=== PATIENT | female | born 1990 | race Caucasian/White ===

== ENCOUNTER 2017-11-06 08:08 | Outpatient (CLI) | payer OTHER | END 2017-11-06 08:09 | disposition home or self-care (01) | LOC: LAB 08:08 | PROVIDERS: ATTEND Nurse Practitioner Obstetrics & Gynecology | DX: R73.02 Impaired glucose tolerance (oral) (principal) | CPT/HCPCS: 36415; 82951 ==

== ENCOUNTER 2017-11-08 10:02 | Outpatient (CLI) | payer OTHER ==
[2017-11-08 10:28] VITALS: BP 124/89
== END 2017-11-08 10:45 | disposition home or self-care (01) ==
LOC: WFO 10:02 → FBP 10:04 → WFO 10:45
PROVIDERS: ATTEND Nurse Practitioner Obstetrics & Gynecology
DX: O24.419 Gestational diabetes mellitus in pregnancy, unspecified control (principal)
CPT/HCPCS: 59025

== ENCOUNTER 2017-11-10 08:00 | Outpatient (CLI) | payer OTHER | END 2017-11-10 08:01 | disposition home or self-care (01) | LOC: LAB.R 08:00 | PROVIDERS: ATTEND Registered Nurse | DX: Z34.83 Encounter for supervision of other normal pregnancy, third trimester (principal) | CPT/HCPCS: 87081 ==

== ENCOUNTER 2017-11-10 10:16 | Outpatient (CLI) | payer OTHER ==
[2017-11-10 10:40] LABS: MEAN CORPUSCULAR HGB CONC 34.5 g/dL (32.0-36.0); MEAN CORPUSCULAR VOLUME 81.2 fL (81.0-99.0); MEAN PLATELET VOLUME 7.4 fL (7.9-10.8); RED BLOOD COUNT 4.28 10^6/uL (4.20-5.40); RED CELL DISTRIBUTION WIDTH 14.2 % (12.0-15.0); WHITE BLOOD COUNT 9.7 x10^3/uL (4.8-10.8)
[2017-11-10 10:48] LABS: ALKALINE PHOSPHATASE 88 IU/L (42-121); ALT ALANINE AMINOTRANSFERASE < 10 IU/L (10-60); AST ASPARTATE AMINOTRANSFERASE 18 IU/L (10-42); BILIRUBIN,TOTAL 0.4 mg/dL (0.2-1.0); BUN - BLOOD UREA NITROGEN 7 mg/dL (6-20); CALCIUM 8.5 mg/dL (8.5-10.3); CARBON DIOXIDE - CO2 19 mmol/L (21-32); CHLORIDE 106 mmol/L (101-111); CREATININE 0.5 mg/dL (0.4-1.0); GFR - MDRD 146 (>89); GLUCOSE 106 mg/dL (70-100); SODIUM 136 mmol/L (135-145); TOTAL PROTEIN 6.1 g/dL (6.7-8.2)
[2017-11-10 12:29] LABS: CREATININE,URINE 57.1 mg/dL
[2017-11-10 12:30] LABS: TOTAL PROTEIN,URINE TIMED < 6 mg/dL
[2017-11-10 13:20] VITALS: BP 122/82
== END 2017-11-10 13:05 | disposition home or self-care (01) ==
LOC: WFO 10:16 → FBP 10:18 → WFO 13:05
PROVIDERS: ATTEND Registered Nurse
DX: O16.3 Unspecified maternal hypertension, third trimester (principal); Z3A.36 36 weeks gestation of pregnancy
CPT/HCPCS: 36415; 80053; 82570; 84156; 99213

== ENCOUNTER 2017-11-10 12:39 | Outpatient (CLI) | payer OTHER ==
--- NOTE | 2017-11-11 12:28 | Ultrasound Report ---
OB FOLLOWUP: 11/10/2017 CLINICAL INDICATION: Gestational diabetes. Check growth. TECHNIQUE: Real-time scanning was performed with sales service representative static images obtained. LAST MENSTRUAL PERIOD: 03/03/2017 Clinical Age: 36 weeks 0 days US Age: 36 weeks 6 days EFW Hadlock: 2861 grams EFW% Hadlock: 50% Heart Rate: 139 bpm EDC: 12/08/2017 US EDC: 12/02/2017 BPD Hadlock: 36 weeks 4 days; Mean mm 90 HC Hadlock: 38 weeks 1 day; Mean mm 333 AC Hadlock: 34 weeks 4 days; Mean mm 305 FL Hadlock: 38 weeks 2 days; Mean mm 74 Presentation: cephalic Placental Location: anterior, maternal left Cervical Length: --- Amniotic Fluid: 15.18 cm FINDINGS: There is a single viable intrauterine gestation, in cephalic presentation. heart rate is 139 BPM. The placenta is anterior to the left , without evidence of previa. Amniotic fluid volume is normal with an MAO of 15.2. By size, the fetus measures 36 weeks 6 days (36 weeks 0 days by dating on the order). Estimated weight by Hadlock method is 2861 grams. No free fluid or adnexal lesion is appreciated. IMPRESSION: SINGLE VIABLE INTRAUTERINE GESTATION, MEASURING 36 WEEKS 6 DAYS. NORMAL MAO. TD: 11/10/2017 16:59 MTDD
== END 2017-11-10 12:40 | disposition home or self-care (01) ==
LOC: DI 12:39
PROVIDERS: ATTEND Nurse Practitioner Obstetrics & Gynecology
DX: O24.410 Gestational diabetes mellitus in pregnancy, diet controlled (principal); Z34.83 Encounter for supervision of other normal pregnancy, third trimester
CPT/HCPCS: 76816; 87081

== ENCOUNTER 2017-11-18 10:32 | Outpatient (CLI) | payer OTHER ==
[2017-11-18 10:49] VITALS: BP 126/89
== END 2017-11-18 11:07 | disposition home or self-care (01) ==
LOC: WFO 10:32 → FBP 10:33 → WFO 11:07
PROVIDERS: ATTEND Nurse Practitioner Obstetrics & Gynecology
DX: O13.3 Gestational [pregnancy-induced] hypertension without significant proteinuria, third trimester (principal); Z3A.37 37 weeks gestation of pregnancy
CPT/HCPCS: 36415; 59025; 80053; 82570; 84156; 84550

== ENCOUNTER 2017-11-18 11:11 | Outpatient (CLI) | payer OTHER ==
[2017-11-18 11:41] LABS: HGB - HEMOGLOBIN 12.2 g/dL (12.0-16.0); MEAN CORPUSCULAR HEMOGLOBIN 27.6 pg (27.0-31.0); MEAN CORPUSCULAR VOLUME 81.1 fL (81.0-99.0); MEAN PLATELET VOLUME 7.5 fL (7.9-10.8); RED BLOOD COUNT 4.41 10^6/uL (4.20-5.40); RED CELL DISTRIBUTION WIDTH 14.1 % (12.0-15.0); WHITE BLOOD COUNT 9.4 x10^3/uL (4.8-10.8)
[2017-11-18 11:47] LABS: CREATININE,URINE 142.1 mg/dL; PROTEIN/CREATININE RATIO,URINE 0.1 (<=0.2)
[2017-11-18 11:49] LABS: ALBUMIN 3.1 g/dL (3.2-5.5); ALKALINE PHOSPHATASE 97 IU/L (42-121); ALT ALANINE AMINOTRANSFERASE < 10 IU/L (10-60); AST ASPARTATE AMINOTRANSFERASE 15 IU/L (10-42); BILIRUBIN,TOTAL 0.5 mg/dL (0.2-1.0); BUN - BLOOD UREA NITROGEN 7 mg/dL (6-20); CALCIUM 8.6 mg/dL (8.5-10.3); CARBON DIOXIDE - CO2 22 mmol/L (21-32); CHLORIDE 108 mmol/L (101-111); CREATININE 0.5 mg/dL (0.4-1.0); GFR - MDRD 146 (>89); GLUCOSE 72 mg/dL (70-100); SODIUM 136 mmol/L (135-145); TOTAL PROTEIN 6.2 g/dL (6.7-8.2); URIC ACID 7.2 mg/dL (2.6-7.2)
== END 2017-11-18 11:12 | disposition home or self-care (01) ==
LOC: LAB 11:11
PROVIDERS: ATTEND Nurse Practitioner Obstetrics & Gynecology
DX: O13.3 Gestational [pregnancy-induced] hypertension without significant proteinuria, third trimester (principal)
CPT/HCPCS: 36415; 80053; 82570; 84156; 84550

== ENCOUNTER 2017-11-21 11:52 | Outpatient (CLI) | payer OTHER ==
[2017-11-21 12:37] LABS: MEAN CORPUSCULAR HEMOGLOBIN 27.5 pg (27.0-31.0); MEAN PLATELET VOLUME 7.8 fL (7.9-10.8); RED BLOOD COUNT 4.36 10^6/uL (4.20-5.40); RED CELL DISTRIBUTION WIDTH 14.4 % (12.0-15.0); WHITE BLOOD COUNT 9.8 x10^3/uL (4.8-10.8)
[2017-11-21 12:38] VITALS: BP 130/88
[2017-11-21 12:47] LABS: ALBUMIN/GLOBULIN RATIO 0.9 (1.0-2.2); ALKALINE PHOSPHATASE 105 IU/L (42-121); ALT ALANINE AMINOTRANSFERASE < 10 IU/L (10-60); AST ASPARTATE AMINOTRANSFERASE 16 IU/L (10-42); BILIRUBIN,TOTAL 0.5 mg/dL (0.2-1.0); BUN - BLOOD UREA NITROGEN 8 mg/dL (6-20); CALCIUM 8.7 mg/dL (8.5-10.3); CARBON DIOXIDE - CO2 20 mmol/L (21-32); CHLORIDE 103 mmol/L (101-111); CREATININE 0.6 mg/dL (0.4-1.0); GFR - MDRD 118 (>89); GLUCOSE 86 mg/dL (70-100); SODIUM 134 mmol/L (135-145); TOTAL PROTEIN 6.3 g/dL (6.7-8.2)
[2017-11-21 14:20] LABS: CREATININE,URINE 43.6 mg/dL
[2017-11-21 14:22] LABS: TOTAL PROTEIN,URINE TIMED < 6 mg/dL
--- NOTE | 2017-11-21 14:53 | Ultrasound Report ---
DATE OF SERVICE: 11/21/2017 BIOPHYSICAL PROFILE: 11/21/2017 CLINICAL INDICATION: Gestational hypertension. FINDINGS: The fetus scores 2 points for breathing motion, 2 points for movements, 2 points for tone, and 2 points for amniotic fluid volume, yielding a total score of 8/8. Amniotic fluid index is 11.6. heart rate is 137 BPM. The placenta is left-sided, without evidence of previa. IMPRESSION: 8/8 BIOPHYSICAL PROFILE. TD: 11/21/2017 14:52 [facility]
== END 2017-11-21 13:45 | disposition home or self-care (01) ==
LOC: WFO 11:52 → FBP 11:54 → WFO 13:45
PROVIDERS: ATTEND Registered Nurse
DX: O10.913 Unspecified pre-existing hypertension complicating pregnancy, third trimester (principal); Z3A.37 37 weeks gestation of pregnancy
CPT/HCPCS: 36415; 59025; 76818; 80053; 82570; 84156

== ENCOUNTER 2017-11-22 05:40 | Inpatient (IN) | payer OTHER ==
[2017-11-22] MEDS ORDERED: LACTATED RINGERS 1,000 ML IV ONE ×3 (06:16→13:10)
[2017-11-22] MEDS ORDERED: SODIUM CHLORIDE FLUSH 0.9% 10 ML SYRINGE ONE (06:20)
[2017-11-22] MEDS: LACTATED RINGERS 1,000 ML IV SCH ×2 (08:00→09:57)
[2017-11-22 08:21] LABS: BASOPHILS % (AUTO) 0.3 %; EOSINOPHILS # (AUTO) 0.1 10^3/uL (0.0-0.7); EOSINOPHILS % (AUTO) 0.5 %; HGB - HEMOGLOBIN 11.9 g/dL (12.0-16.0); LYMPHOCYTES # (AUTO) 2.4 10^3/uL (1.5-3.5); LYMPHOCYTES % (AUTO) 22.8 %; MEAN CORPUSCULAR HEMOGLOBIN 27.6 pg (27.0-31.0); MEAN CORPUSCULAR HGB CONC 33.2 g/dL (32.0-36.0); MEAN PLATELET VOLUME 8.4 fL (7.9-10.8); MONOCYTES # (AUTO) 0.8 10^3/uL (0.0-1.0); MONOCYTES % (AUTO) 7.6 %; NEUTROPHILS # (AUTO) 7.3 10^3/uL (1.5-6.6); NEUTROPHILS % (AUTO) 68.8 %; PLT - PLATELET COUNT 221 10^3/uL (130-450); RED BLOOD COUNT 4.33 10^6/uL (4.20-5.40); RED CELL DISTRIBUTION WIDTH 14.5 % (12.0-15.0); WHITE BLOOD COUNT 10.7 x10^3/uL (4.8-10.8)
[2017-11-22] MEDS ORDERED: fentaNYL 250 MCG/5 ML VIAL IVP PRN (08:30)
--- NOTE | 2017-11-22 08:35 | HISTORY & PHYSICAL EXAMINATION ---
Admit History - Instructions [place]/Slash: -Left hand click circles element as positive or present. -Right hand click slashes element as negative or not present. - Visit Reason Visit Reason: Contractions (Strong contractions began @ 0300; she took a bath & ate a light snack, hydrated well; contractions became progressively worse & she presented to [facility] @ 0600; was 3cm/90%/-1 @ that point, no LOF/VB) - : 2 Parity: 1 Premature: 0 Ectopic: 0 : 0 Care: positive: [facility] (beginning @ 34 weeks' gestation for 4 visits), [facility] (initiated care @ 10 weeks for a total of 6 visits there) Risk/History: positive: Gestational diabetes (GDMA1, identified @ 35 weeks' gestation), induced HTN (no s/sx PET; onset ~36 weeks' gestation) Complications This : positive: Gestational diabetes (GDMA1), induced HTN (no s/sx PET; on labetalol 200mg po BID w/o s/sx PET; no severe-range pressures) Smoking Status: Never smoker - Mother's Labs Mother's Blood Type: positive: O Mother's RH: positive: Positive GBS: positive: Group B Step Negative Rubella Status: positive: Immune - Other Maternal History Other Maternal History: 1-hr gtt 150mg/dL; drawn @ [facility] w/o f/u initiated; 3-hr gtt performed @ 35 weeks ' gestation: 99/201/167/90; CBGs @ home all WNL, diet-controlled; GHTN identified @ 36 weeks' gestation: labetalol initiated, titrated to manage BPs to 200mg po BID, PLT 276K, LFTs WNL, no hemolysis, no proteinuria, no neuro s/sx Meds/Allgy - Home Medications Home Medications: Ambulatory Orders Medication Instructions Recorded Confirmed Labetalol [Trandate] 200 mg PO BID 11/22/17 11/22/17 Pantoprazole [Protonix] 40 mg PO DAILY 11/22/17 11/22/17 Pnv No.122/Iron/Folic Acid 1 tab PO DAILY 11/22/17 11/22/17 [ Multi Tablet] - Allergies Allergies/Adverse Reactions: Allergies Allergy/AdvReac Type Severity Reaction Status Date / Time band aids AdvReac Rash Uncoded 11/08/17 10:15 Physical - Abdominal Exam Vital Signs: Temp Pulse Resp BP Pulse Ox 36.8 C 83 18 120/61 100 11/22/17 06:05 11/22/17 06:05 11/22/17 06:05 11/22/17 06:05 11/22/17 06:05 Contraction Frequency (min/apart): 5-7 Contraction Intensity: positive: Moderate to strong Uterine Resting Tone: positive: Soft - Monitoring Heart Rate Baseline: 140 Strip Review: positive: Category I (+accels, no decels, mod ivis) - Presentation Presentation: positive: Vertex - Vaginal Exam Membranes: positive: Membranes intact Dilation (in cm): 5 Effacement (%): 90 Station: positive: -1 Cervical Position: positive: Midposition (soft) - Speculum Exam Speculum Exam Performed: positive: No Findings: negative: Gross leak - Other Notes Labor Progress Note/Additional Text: Naomi Freed is a 27 y/o @ 37w5d by LMP consistent w/ 10 week ultrasound who began receiving care w/ [facility] @ 10 weeks' gestation & was seen for a total of 6 visits in their setting; she transferred care to [facility] @ 34 weeks' gestation & was seen for a total of 4 visits in this setting. Her care was complicated by GDM with late identification, as 3 hr gtt was not performed until she was seen by CNM @ [facility]. Her CBGs have been WNL & her GDM has been consistently diet-controlled. She developed elevated BPs @ 36 weeks' gestation & began labetalol for management of BPs, which have been consistently non-severe range on 200mg po labetalol daily. Her laboratory evaluation for PET has been negative & she has had no proteinuria. She does not have s/sx PET & has had reactive & reassuring surveillance. She screened negative for GBS @ 36 weeks' gestation. Naomi presented w/ SOOC @ 0300 w/ progressive frequency/intensity ~0600. She was 3/90/-1 @ 0600 & was found to have made cervical change to 5/90/-1 @ 0800, at which time she requested analgesia & anesthesia. She denies LOF & has had some bloody show but no zara vaginal bleeding. She reports good FM. She did not check her CBG this am & did not take her labetalol. She is normotensive @ present & her EFM has been consistently category I. She denies JUNG/vision changes/RUQ/epigastric/shoulder pain. She is exhausted. She is accompanied by her , Angelo, who is involved & supportive. PMHx: GERD PSHx: unremarkable PgynHx: hx recurrent vaginitis; no STI hx PobHx: Hx x1 2016, elective IOL, no complications SocHx: Unemployed, to Angelo, denies DV; no tobacco/ETOH/drugs Meds: Labetalol 200mg po BID; protonix 40mg po daily; PNV Labs: O+, antibody neg, PLT 276K, h/h: 12.0/34.8; P:C: <0.1; gtt: 150mg/dL; 3- hr gtt: 99/201/167/90; GBS neg; HIV/RPR/hepC/hep B/gc/ct all neg; Rubella Imm Allergies: codeine (rash); adhesive tape (rash) ROS: GEN: no fever/chills HEENT: no JUNG/vision changes CARDIAC: no CP/palpitations RESP: no SOB/dyspnea/cough GI: No N/V/D; abd pain w/ contractions, no RUQ/epigastric pain : No dysuria, +bloody vaginal d/c, no lesion OB: +FM, +uterine contractions, described as 8/10 pain, no LOF, +bloody show MS: +lumbar pain, FROM SKIN: No pruritus, no lesion NEURO: No numbness/tingling/weakness PSYCH: Anxious, no depression PE: GEN: AAOx3, uncomfortable gravid female HEENT: grossly normocephalic, atraumatic CARDIAC: [id number], no murmur, no pedal edema RESP: lungs b/t CTA t/o GI: Abd gravid, tender w/ contractions, palpable moderate contractions, palpable movement; lie longitudinal, presentation cephalic, EFW 7-7.5# : No lesions, +bloody mucoid vaginal d/c OB: EFM: BL 140bpm, +accels, no decels, mod variability; TOCO: UCs q5-7 min x60- 80 seconds, palpably moderate; SVE; 5/90/-1 IBOW, midposition, soft; position difficult to assess secondary to maternal discomfort w/ SVE MS: FROM t/o, no edema, no erythema SKIN: C/D/I, warm, well-perfused, no lesion NEURO: No focal deficit, b/l LE DTRs +2, no clonus PSYCH: Anxious, no depression ASSESSMENT: 27 y/o @ 37w5d by 1st trimester US in active, spontaneous labor, progressive spontaneous cervical change GBS negative, IBOW GHTN w/o s/sx PET, normotensive @ present GDMA1 FHTs cat I Inadequate pain control w/ desire for anesthesia @ this time Plan for Labor - Plan For Labor Plan for Labor: 1. Admit to [facility], inpatient 2. Fentanyl 100mcg IVP x1 now, call anesthesia to initiate epidural placement 3. CBC/CMP/P:C/blood bank hold 4. CEFM 5. CBGs q 2 hrs, intervention as clinically indicated 6. labetalol 200mg po & additional antihypertensive therapy IVP PRN HTN 7. close monitoring of BP & intervention as clinically indicated 8. Reassess cervical status x4 hours, earlier PRN, AROM if no cervical change 9. Anticipate 10. Reviewed plan of care w/ pt, partner & RN @ bedside; all in agreement, without concerns; Dr. Mikey MD, back-up WASHERY ENGINEER notified re: clinical situation & concurs w/ plan of care
[2017-11-22] MEDS ORDERED: fentaNYL 100 MCG/2 ML VIAL IVP PRN (08:42)
[2017-11-22] MEDS ORDERED: fent/BUPIV 2 MCG/0.125% 250 ML EP ONE (08:45)
[2017-11-22 09:02] LABS: ALBUMIN 3.2 g/dL (3.2-5.5); ALBUMIN/GLOBULIN RATIO 0.9 (1.0-2.2); BILIRUBIN,TOTAL 0.5 mg/dL (0.2-1.0); CALCIUM 8.8 mg/dL (8.5-10.3); CREATININE 0.6 mg/dL (0.4-1.0); TOTAL PROTEIN 6.7 g/dL (6.7-8.2)
[2017-11-22] MEDS ORDERED: LABETALOL 20 MG/4 ML SYRINGE IVP ONE (09:07)
[2017-11-22] MEDS ORDERED: BUPIVACAINE 0.25% PF 10 ML VIAL SUBQ ONE (09:51)
[2017-11-22] MEDS ORDERED: PANTOPRAZOLE 40 MG VIAL IVP SCH (10:00)
[2017-11-22] MEDS ORDERED: NALOXONE 0.4 MG/ML VIAL IVP PRN (10:02)
[2017-11-22] MEDS ORDERED: diphenhydrAMINE INJ 50 MG/ML VIAL IVP PRN (10:02)
[2017-11-22] MEDS ORDERED: NALBUPHINE 20 MG/ML AMP IVP PRN (10:02)
[2017-11-22] MEDS ORDERED: METOCLOPRAMIDE 10 MG/2 ML VIAL IVP PRN (10:02)
[2017-11-22] MEDS ORDERED: LACTATED RINGERS 500 ML IV ONE (10:02)
[2017-11-22] MEDS ORDERED: ONDANSETRON 4 MG/2 ML VIAL IVP PRN (10:02)
[2017-11-22] MEDS ORDERED: ePHEDrine 50 MG/ML VIAL IVP PRN (10:02)
--- NOTE | 2017-11-22 10:12 | PROVIDER PROGRESS NOTE ---
Labor Progress Note - Uterine Monitoring Uterine Monitoring Mode: positive: External toco Contraction Frequency (min/apart): q 5 min x 100 seconds Contraction Intensity: positive: Strong Uterine Resting Tone: positive: Soft - Monitoring Monitor Mode: positive: External ultrasound Heart Rate Baseline: 130 Heart Rate Variability: positive: Moderate (6-25 bmp) Accelerations: positive: Present, 15x15 Decelerations: positive: Early (to luli in 90s w/ spontaneous return to baseline by contractions' end) Strip Review: positive: Category I - Labor Progress Note Labor Progress Note/Additional Text: S: Naomi is now comfortable w/ her epidural in place. Feels she will be able to rest. Angelo is present @ the bedside & is supportive.0 O: AAOx3, NAD [place] gravid female VS: HR 76, BP 126/66, RR 18 EFM BL 130bpm, + accels, +early decels to luli in 90s w/ spontaneous return to baseline by contractions' end; mod variability TOCO: UCs q 5 min x100 seconds, palpably strong SVE deferred secondary to no indication & recent SROM for CAF CBG 99mg/dL A: 27 y/o @ 37w5d by first trimester US in active, spontaneous labor GDMA1 w/ CBG WNL GHTN w/o s/sx PET, normotensive @ present GBS negative, SROM for CAF Adequate pain control w/ epidural anesthesia P: 1. Continue q 2 hr CBGs in active labor 2. Continue careful monitoring of BP; initiate antihypertensive therapy as clinically indicated--presently stable on oral labetalol 3. Reassess cervical status x2 hours, earlier PRN 4. Encouraged maternal rest 5. Anticipate 6. Reviewed plan of care w/ pt, partner & RN @ bedside; all in agreement, without concerns.
[2017-11-22] MEDS: LABETALOL 100 MG TABLET PO SCH ×2 (10:13→20:01)
[2017-11-22] MEDS ORDERED: OXYTOCIN/SODIUM CHLORIDE 250 ML IV ONE (10:16)
[2017-11-22] MEDS: SODIUM CHLORIDE FLUSH 0.9% 10 ML SYRINGE IVP PRN ×2 (10:26→10:27)
--- NOTE | 2017-11-22 11:39 | PROVIDER PROGRESS NOTE ---
Labor Progress Note - Uterine Monitoring Uterine Monitoring Mode: positive: IUPC Contraction Frequency (min/apart): 3 min : MVU presently >180 Contraction Intensity: positive: Moderate to strong Uterine Resting Tone: positive: Soft Other Uterine Monitoring: baseline 0mmHg, peak 50mmHg - Monitoring Monitor Mode: positive: Spiral electrode Heart Rate Baseline: 130 Heart Rate Variability: positive: Moderate (6-25 bmp) Accelerations: positive: Absent Decelerations: positive: Variable (with strong contractions to luli in 80s w/ spontaneous return to baseline <60seconds), Recurrent (>50% x20 min) Strip Review: positive: Category II - Vaginal Exam Dilation (in cm): 6 Effacement (%): 90 Station: -1 Cervical Position: Midposition - Labor Progress Note Labor Progress Note/Additional Text: S: Naomi is comfortable w/ her epidural. She has been unable to sleep, but she has been resting. She is hopeful that her labor will progress spontaneously & that she will deliver shortly. Angelo is present @ the bedside & is supportive. O: AAOx3, NAD [place] female VS HR 68 BP 117/75 EFM BL 130bpm, no accels, mod ivis, recurrent variable decelerations to luli in 80s w/ spontaneous return to baseline <60 seconds; FSE applied w/o difficulty secondary to difficulty maintaining consistent external CEFM IUPC placed to ensure adequacy of contractions & pattern of FHR deceleration in relation to contraction activity; MSAF noted; BL 0mmHg, peak 50mmHg, contractions q2-3 minutes, MVU presently >180 SVE: /-1, position ROT A: 27 y/o @ 37w5d by 1st trimester US in spontaneous, active labor MSAF, SROM x1.5 hours FHTs Cat II for recurrent variable decelerations GBS negative GHTN w/o s/sx PET, normotensive @ prsent GDMA1, CBGs WNL Adequate contraction pattern by MVU Adequate pain control w/ epidural anesthesia Slow cervical change P: 1. Reviewed clinical scenario w/ pt, including implications of MSAF, recurrent decelerations, slow cervical change & no progressive descent 2. Ongoing careful monitoring of BP 3. Ongoing CBG evaluation 4. Dr. Mikey MD, back-up COOKING SHOW HOST, notifed of clinical scenario, available for additional intervention as warranted 5. Dr. Poly MD, brand manager, notified of clinical scenario, plans to be available @ hospital for delivery 6. Reassess cervical status x1 hour, earlier PRN 7. Intrauterine resuscitative measures 8. Reviewed plan of care w/ pt, partner & RN @ bedside; all in agreement, cautiously optimistic for cervical change &
[2017-11-22] MEDS ORDERED: TERBUTALINE 1 MG/ML VIAL SUBQ ONE (12:17)
--- NOTE | 2017-11-22 12:20 | PROVIDER PROGRESS NOTE ---
Labor Progress Note - Uterine Monitoring Uterine Monitoring Mode: positive: IUPC Contraction Frequency (min/apart): 2-3 : baseline 0mmHg, peak 65mmHg, MVU >200 @ present Contraction Intensity: positive: Moderate to strong Uterine Resting Tone: positive: Soft - Monitoring Monitor Mode: positive: Spiral electrode Heart Rate Baseline: 120 Heart Rate Variability: positive: Moderate (6-25 bmp) Accelerations: positive: Absent Decelerations: positive: Variable (recurrent variable contractions to luli in 70s w/ spontaneous return to baseline over 90-110 seconds, becoming progressively prolonged & progressively steep.), Recurrent (>50% x20 min) Strip Review: positive: Category II - Vaginal Exam Dilation (in cm): 6 Effacement (%): 90 Station: -1 Cervical Position: Midposition ( position LOP) - Labor Progress Note Labor Progress Note/Additional Text: S: Naomi is comfortable w/ her epidural. She is nervous about well- being. She does not desire a c/s delivery but also is fully aware of her clinical circumstance & the implications for her fetus. O: AAOx3, tearful gravid female EFM:BL 120bpm, no accels, recurrent variable decelerations w/ luli in 70s w/ each uterine contraction, spontaneous recovery over a period of 90-110 seconds, no response to intrauterine resuscitative measures IUPC: Uterine contractions q2-3 minutes x60-80 seconds, BL 0mmHg, peak 65mmHg, MVU >200 SVE: 6/90/-1, MSAF continues to leak, position ROP A: 27 y/o @ 37w5d in spontaneous, active labor, no progressive cervical change FHTs cat II, recurrent variable decelerations of increasing depth & duration MSAF GHTN w/o s/sx PET, normotensive @ present GDMA1 w/ CBGS WNL during active labor Adequate pain control w/ epidural anesthesia Adequate contraction pattern, no cervical change P: 1. Reviewed clinical scenario w/ pt; recommend proceed to c/s delivery 2. terbutaline 0.25mg SQ now 3. anesthesia/ob/OR team notified 4. pt & partner in agreement w/ decision to proceed to d/c, Dr. Jensen to bedside to consent pt for primary LTCS for NRFHTs.
[2017-11-22] MEDS ORDERED: CITRIC ACID/SODIUM CITRATE 15 ML UDC PO ONE (12:28)
[2017-11-22] MEDS ORDERED: BUPIVACAINE 0.25%-EPI 1:200000 PF 30 ML VIAL SUBQ ONE ×2 (12:55→13:00)
[2017-11-22] MEDS ORDERED: SODIUM CHLORIDE FLUSH 0.9% 10 ML SYRINGE IVP PRN (13:47)
[2017-11-22] MEDS ORDERED: HYDROCORTISONE/PRAMOXINE 10 GM PR PRN (13:47)
[2017-11-22] MEDS ORDERED: diphenhydrAMINE 25 MG CAPSULE PO PRN (13:47)
[2017-11-22] MEDS ORDERED: oxyCOD/ACETAMIN 5 MG/325 MG TABLET PO PRN (13:47)
[2017-11-22] MEDS ORDERED: WITCH HAZEL/GLYCERIN 1 EACH MED..PAD TOP PRN (13:47)
--- NOTE | 2017-11-22 13:55 | OPERATIVE REPORT ---
Operative Report - General Admit Date: 11/22/17 Planned Procedure: Emergent section Pre-Op Diagnosis: Term labor; category 3 heart tracing; gestational diabetes; Procedure Performed: Primary lower segment transverse section yielding a living male Post Op Diagnosis: Occult cord prolapse; Nuchal cord 2 - Procedure Note Primary Surgeon: Angel Luis Jensen MD Secondary Surgeon: Leonidas Joe certified nurse stave planer tender Anesthesia Technique: Epidural, General mask, Local Pathology: Placenta 10 sent to pathology IV Fluids (mL): 1,400 Estimated Blood Loss (mL): 250 Urine Output (mL): 200 Drain/Tube Type: Other (Saini to gravity) Complications: None - Other Other Information/Narrative: Living female infant weighing 2918 g Apgars 4/8/9; Cord pH 7.14, base excess -6 Infant responded well to resuscitation reference Dr. Mendoza's notes
[2017-11-22] MEDS ORDERED: SODIUM CHLORIDE FLUSH 0.9% 10 ML SYRINGE IVP SCH (14:00)
[2017-11-22] MEDS ORDERED: LACTATED RINGERS 1,000 ML IV SCH (14:00)
--- NOTE | 2017-11-22 14:10 | XRAY Report ---
EXAM: ABDOMEN RADIOGRAPHY EXAM DATE: 11/22/2017 01:47 PM. CLINICAL HISTORY: Stat section. Assess for materials count. COMPARISON: None. TECHNIQUE: 1 view. FINDINGS: Bowel Gas Pattern: No bowel obstruction. Increased density projected over the central mid and lower a bdomen and pelvis. Other: Linear radiopaque density projects are lower thoracic and portions of the upper lumbar spine. Linear radiopaque density projects over the mid lower pelvis. No acute osseous abnormalities. Widening of the pubis symphysis. IMPRESSION: 1. Linear radiopaque density projected over the lower thoracic and mid and upper lumbar spine possibl y overlying the patient or represent an epidural lead/catheter. Correlation recommended. 2. Linear radiopaque density projected over the mid lower pelvis possibly overlying catheter, Saini c atheter and less typical for drainage catheter. Correlation recommended. 3. No other unexpected radiopaque foreign bodies are identified. [facility] Referring Provider Line: [phone] SITE ID: [id number]
[2017-11-22 14:22] LABS: CORD ARTERIAL BLOOD HCO3 23.4; CORD ARTERIAL BLOOD PCO2 69.1
[2017-11-22] MEDS ORDERED: fentaNYL 100 MCG/2 ML VIAL IVP ONE (14:24)
[2017-11-22] MEDS ORDERED: KETOROLAC 30 MG/ML VIAL IVP ONE (14:24)
[2017-11-22] MEDS ORDERED: ceFAZolin 1 GM VIAL IV ONE (14:24)
[2017-11-22] MEDS ORDERED: BUPIVACAINE 0.5% PF 30 ML VIAL SUBQ ONE (14:24)
[2017-11-22] MEDS ORDERED: PROPOFOL 200 MG/20 ML VIAL IVP ONE (14:24)
[2017-11-22] MEDS ORDERED: OXYTOCIN 10 UNIT/ML VIAL IV ONE (14:24)
[2017-11-22] MEDS: oxyCOD/ACETAMIN 5 MG/325 MG TABLET PO PRN ×3 (16:04→23:53)
[2017-11-22 16:58] LABS: CREATININE,URINE 29.5 mg/dL
[2017-11-22 16:59] LABS: TOTAL PROTEIN,URINE TIMED < 6 mg/dL
[2017-11-22] MEDS ORDERED: ALPRAZolam 0.25 MG TABLET PO PRN (18:46)
[2017-11-22] MEDS: KETOROLAC 30 MG/ML VIAL IV SCH (19:38)
[2017-11-22] MEDS: SIMETHICONE CHEW 80 MG TABLET PO SCH (20:10)
[2017-11-22] MEDS: DOCUSATE SODIUM 100 MG CAPSULE PO SCH (20:10)
[2017-11-22] MEDS ORDERED: LABETALOL 100 MG TABLET PO SCH (21:00)
[2017-11-22] MEDS: fentaNYL 100 MCG/2 ML VIAL IVP PRN (21:36)
[2017-11-22] MEDS: ACETAMINOPHEN 500 MG TABLET PO SCH (22:18)
[2017-11-23] MEDS: fentaNYL 100 MCG/2 ML VIAL IVP PRN ×3 (00:22→08:34)
[2017-11-23] MEDS: KETOROLAC 30 MG/ML VIAL IV SCH ×3 (02:54→15:42)
[2017-11-23] MEDS: oxyCOD/ACETAMIN 5 MG/325 MG TABLET PO PRN ×2 (04:27→08:35)
[2017-11-23 07:01] LABS: BASOPHILS % (AUTO) 0.1 %; EOSINOPHILS # (AUTO) 0.1 10^3/uL (0.0-0.7); EOSINOPHILS % (AUTO) 0.5 %; HGB - HEMOGLOBIN 10.5 g/dL (12.0-16.0); LYMPHOCYTES # (AUTO) 2.1 10^3/uL (1.5-3.5); LYMPHOCYTES % (AUTO) 14.6 %; MEAN CORPUSCULAR HEMOGLOBIN 27.3 pg (27.0-31.0); MEAN CORPUSCULAR HGB CONC 33.2 g/dL (32.0-36.0); MEAN CORPUSCULAR VOLUME 82.1 fL (81.0-99.0); MEAN PLATELET VOLUME 7.7 fL (7.9-10.8); MONOCYTES # (AUTO) 0.9 10^3/uL (0.0-1.0); MONOCYTES % (AUTO) 6.1 %; NEUTROPHILS # (AUTO) 11.5 10^3/uL (1.5-6.6); NEUTROPHILS % (AUTO) 78.7 %; PLT - PLATELET COUNT 144 10^3/uL (130-450); RED BLOOD COUNT 3.83 10^6/uL (4.20-5.40); RED CELL DISTRIBUTION WIDTH 14.2 % (12.0-15.0); WHITE BLOOD COUNT 14.6 x10^3/uL (4.8-10.8)
[2017-11-23] MEDS: ACETAMINOPHEN 500 MG TABLET PO SCH ×4 (07:52→23:07)
[2017-11-23] MEDS: SODIUM CHLORIDE FLUSH 0.9% 10 ML SYRINGE IVP SCH (07:53)
[2017-11-23] MEDS: SIMETHICONE CHEW 80 MG TABLET PO SCH ×6 (07:53→21:38)
[2017-11-23] MEDS: PRENATAL VITAMIN TABLET PO SCH ×2 (08:35→09:03)
[2017-11-23] MEDS: DOCUSATE SODIUM 100 MG CAPSULE PO SCH ×2 (08:35→21:39)
[2017-11-23] MEDS: LABETALOL 100 MG TABLET PO SCH ×2 (08:36→21:37)
--- NOTE | 2017-11-23 11:31 | PROVIDER PROGRESS NOTE ---
Subjective - General Admit Date: 11/22/17 Procedure Date: 11/22/17 Post Op Days: 1 Procedure Performed: Primary LST Cesarian Section - Review of Systems Wound/Incisions: positive: Healing well (Dry & Intact) Drain Type: None General: positive: No symptoms HEENT: positive: No symptoms Pulmonary: positive: No symptoms Cardiovascular: positive: No symptoms Gastrointestinal: positive: No symptoms Genitourinary: positive: Pain (Controlled w Fentanyl & Tordol) Musculoskeletal: positive: No symptoms Skin: positive: No symptoms Psychiatric: positive: No symptoms (Discussed events surrounding Cesarian and allowed patient to express her concerns & fears. Discussed potential for PTSD and the use of counselling as prophylaxis) Objective - Patient Data Vital Signs: Vital Signs x48h Temp Pulse Resp BP Pulse Ox 11/23/17 07:49 98.2 F 92 18 135/97 H 96 Weight: Weight 11/21/17 11/22/17 11/23/17 23:59 23:59 23:59 Weight (kg) 81.193 kg Intake & Output: Intake and Output Totals x24h 11/21/17 11/22/17 11/23/17 23:59 23:59 23:59 Intake Total 1564.5 1100 Output Total 1150 800 Balance 414.5 300 - Lab Results Lab Results: 11/23/17 06:32 11/22/17 08:39 Other Lab Results: Lab Results x24hrs 11/23/17 11/22/17 11/22/17 Range/Units 06:32 16:28 15:41 WBC 14.6 H (4.8-10.8) x10^3/uL RBC 3.83 L (4.20-5.40) 10^6/uL Hgb 10.5 L (12.0-16.0) g/dL Hct 31.5 L (37.0-47.0) % MCV 82.1 (81.0-99.0) fL MCH 27.3 (27.0-31.0) pg MCHC 33.2 (32.0-36.0) g/dL RDW 14.2 (12.0-15.0) % Plt Count 144 (130-450) 10^3/uL MPV 7.7 L (7.9-10.8) fL Neut # 11.5 H (1.5-6.6) 10^3/uL Lymph # 2.1 (1.5-3.5) 10^3/uL [place] # 0.9 (0.0-1.0) 10^3/uL Eos # 0.1 (0.0-0.7) 10^3/uL Baso # 0.0 (0.0-0.1) 10^3/uL Absolute Nucleated RBC 0.01 x10^3/uL Nucleated RBC % 0.0 /100WBC Cord ABG pH Cord ABG pCO2 Cord ABG pO2 Cord ABG HCO3 Cord ABG Total CO2 Cord ABG Base Excess Cord ABG O2 Sat POC Whole Bld Glucose (70 - 100) mg/dL Urine Creatinine 29.5 mg/dL Ur Total Protein Timed < 6 mg/dL Protein/Creatinin Ratio Not Reportable Blood Type Blood Type Recheck O POSITIVE Antibody Screen 11/22/17 11/22/17 11/22/17 Range/Units 13:45 11:51 06:20 WBC (4.8-10.8) x10^3/uL RBC (4.20-5.40) 10^6/uL Hgb (12.0-16.0) g/dL Hct (37.0-47.0) % MCV (81.0-99.0) fL MCH (27.0-31.0) pg MCHC (32.0-36.0) g/dL RDW (12.0-15.0) % Plt Count (130-450) 10^3/uL MPV (7.9-10.8) fL Neut # (1.5-6.6) 10^3/uL Lymph # (1.5-3.5) 10^3/uL [place] # (0.0-1.0) 10^3/uL Eos # (0.0-0.7) 10^3/uL Baso # (0.0-0.1) 10^3/uL Absolute Nucleated RBC x10^3/uL Nucleated RBC % /100WBC Cord ABG pH 7.14 Cord ABG pCO2 69.1 Cord ABG pO2 17 Cord ABG HCO3 23.4 Cord ABG Total CO2 25 Cord ABG Base Excess -6 Cord ABG O2 Sat 15 POC Whole Bld Glucose 87 (70 - 100) mg/dL Urine Creatinine mg/dL Ur Total Protein Timed mg/dL Protein/Creatinin Ratio Blood Type O POSITIVE Blood Type Recheck Antibody Screen NEGATIVE - Current Medications Current Medications: Current Medications Generic Name Dose Route Start Last Admin Trade Name Freq PRN Reason Stop Dose Admin Acetaminophen 1,000 mg 11/22/17 14:00 11/23/17 07:55 Tylenol PO Not Given Q8H [facility] Docusate Sodium 100 mg 11/22/17 21:00 11/23/17 08:35 Colace 100mg Capsule PO 100 mg BID CHERRIE Administration Fentanyl 50 mcg 11/22/17 21:09 11/23/17 08:34 Fentanyl IVP 50 mcg Q1HR PRN Administration PAIN Lactated Ringer's 1,000 mls @ 100 mls/hr 11/22/17 14:00 11/22/17 23:58 Lr IV 100 mls/hr .Q10H CHERRIE Administration Labetalol HCl 100 mg 11/22/17 11:00 11/23/17 08:36 Trandate PO 100 mg BID CHERRIE Administration Oxycodone/Acetaminophen 2 tab 11/22/17 15:33 11/23/17 08:35 Percocet 5 Mg/325 Mg PO 2 tab Q4HR PRN Administration PAIN Multivit/Folic Acid/Iron 1 tab 11/22/17 10:00 11/23/17 09:03 Trinatal Rx 1 PO Not Given DAILYWM [facility] Simethicone 80 mg 11/22/17 20:00 11/23/17 08:35 Mylicon PO 80 mg 0900,1300,1800,2100 CHERRIE Administration Sodium Chloride 10 ml 11/22/17 14:00 11/23/17 07:53 Normal Saline Flush 0.9% IVP Not Given Q8HR [facility] Physical Exam - Physical Exam General: positive: No acute distress, Alert HEENT: positive: Moist mucous membranes Neck: positive: Supple w/out meningeal sx Cardiac: positive: Regular Rate Resipratory: positive: Clear to ausultation graciela Abdomen: positive: Normal Bowel sounds Female : positive: Vaginal Bleeding (mild nonfoul lochia), Enlarged uterus ( 18 wks Firm NT) Extremities: positive: Normal ROM, No pedal edema, Non tender Skin: positive: Warm and dry Neurologic: positive: Alert and Oriented X 3, Normal Sensation, Normal Speech Assessment/Plan - Assessment/Plan Assessment: She is recovering well thus far. Plan: Continue Supportive Care
[2017-11-23] MEDS: PANTOPRAZOLE 40 MG TABLET PO SCH (13:14)
[2017-11-23] MEDS ORDERED: KETOROLAC 30 MG/ML VIAL ONE (14:46)
[2017-11-23] MEDS ORDERED: SODIUM CHLORIDE FLUSH 0.9% 10 ML SYRINGE ONE (14:46)
[2017-11-23] MEDS: oxyCODONE 5 MG TABLET PO PRN ×2 (15:43→21:37)
[2017-11-23] MEDS: CELECOXIB 100 MG CAPSULE PO SCH (23:06)
[2017-11-24] MEDS: oxyCODONE 5 MG TABLET PO PRN ×4 (04:23→22:08)
[2017-11-24] MEDS: ACETAMINOPHEN 500 MG TABLET PO SCH ×2 (07:19→16:01)
[2017-11-24] MEDS: PANTOPRAZOLE 40 MG TABLET PO SCH (07:45)
[2017-11-24] MEDS: PRENATAL VITAMIN TABLET PO SCH (08:51)
[2017-11-24] MEDS: CELECOXIB 100 MG CAPSULE PO SCH ×2 (08:51→21:10)
[2017-11-24] MEDS: DOCUSATE SODIUM 100 MG CAPSULE PO SCH ×2 (08:52→21:10)
[2017-11-24] MEDS: SIMETHICONE CHEW 80 MG TABLET PO SCH ×3 (08:52→21:09)
[2017-11-24] MEDS: LABETALOL 100 MG TABLET PO SCH ×2 (08:59→20:26)
[2017-11-25] MEDS: ACETAMINOPHEN 500 MG TABLET PO SCH ×2 (00:14→07:54)
[2017-11-25] MEDS: oxyCODONE 5 MG TABLET PO PRN ×2 (04:06→10:03)
[2017-11-25] MEDS: CELECOXIB 100 MG CAPSULE PO SCH (08:54)
[2017-11-25] MEDS: DOCUSATE SODIUM 100 MG CAPSULE PO SCH (08:54)
[2017-11-25] MEDS: PRENATAL VITAMIN TABLET PO SCH (08:54)
[2017-11-25] MEDS: LABETALOL 100 MG TABLET PO SCH (08:55)
[2017-11-25] MEDS: SIMETHICONE CHEW 80 MG TABLET PO SCH ×2 (08:55→14:03)
--- NOTE | 2017-11-25 08:58 | OPERATIVE REPORT ---
DATE OF SERVICE: Physician: Angel Luis Jensen MD DATE OF SURGERY: 11/22/2017. PREOPERATIVE DIAGNOSES 1. A 37-week gestation in labor. 2. Category 3 heart tracing. 3. Gestational diabetes. 4. Gestational hypertension. POSTOPERATIVE DIAGNOSES 1. Cord prolapse. 2. Nuchal cord x2, tight. 3. A 37-week gestation in labor. 4. Category 3 heart tracing. 5. Gestational diabetes. 6. Gestational hypertension. NAME OF PROCEDURE: Emergent primary lower segment transverse section, yielding a living female . SURGEON: Angel Luis Jensen MD, FACOG, FICS POSTPARTUM RN: Ean Joe, Certified Nurse Chocolate Finisher Operator, Advanced Nurse Practitioner. ANESTHESIOLOGIST: Dedrick Murrell MD ANESTHESIA: Epidural (Dr. Murrell); Local (Dr. Jensen, 30 mL of 0.25% Marcaine with epinephrine), Deep sedation with mask (Dr. Murrell). ESTIMATED BLOOD LOSS: 250 mg. COMPLICATIONS: None. DRAINS: Saini to gravity with 200 mL of clear urine. INTRAVENOUS FLUIDS: 1400. FINDINGS: The patient's strip was originally a category 2 earlier in the day with repetitive decelerations, mostly early down to the 80s and at times some missed or decreased variability. At roughly 12 o'clock, there was 1 late deceleration to 75 beats per minute that lasted 60 seconds. This was followed again by another deceleration for 3 minutes down to the 90s at 12:10. I responded and was at the bedside by 12:15, responded to Chocolate Finisher Operator Heath's consultation request. Terbutaline had already been given, as well as O2 and a bolus of IV fluids. Cervix was 5 cm and the was fairly remote from delivery. The repetitive decelerations continued, which prompted a call for immediate section. OR crew was alerted. Approximately 5 minutes after that, Anesthesia was alerted. The patient was prepared for immediate surgery and transport. Incision was begun at 1258 hrs.At 1312 hours, a living Male was born, weighing 2918 grams and scoring Apgars of 4/8/9. Dr. Mendoza was in attendance. Reference his notes. Arterial cord pH was 7.14 with a base excess of -6. There were no obvious congenital anomalies or trauma. responded well to resuscitation. Placenta was removed intact. There was no obvious abruption or infection. The cord was a 3-vessel configuration. There was considerable cord entanglement with nuchal cord twice tightly. Additionally, there was a loop of cord lodged between the head and pelvic side wall and area of dilation, forming an occult cord prolapse. This is thought to be the source of the decelerations and heart tracing changes. Tubes and ovaries appeared to be normal bilaterally. There was no septum in the uterus. There were no myometrial defects. TECHNIQUE: Due to deteriorating heart tracing and category 3 strip, the patient was prepared for emergent . Ean Joe shepherded the preparations for transport. I went to the operating room and helped with set up and the OR crew. The patient was brought to the operating suite and placed on the table in the supine position. Dr. Murrell redosed her epidural. There was difficulty finding heart tones, but eventually they were found in the 130s. There remained concerns about the reserve and wellbeing. The patient was prepped and draped in the customary sterile fashion. I injected 30 mL of Marcaine in small aliquots in a line needed for a Pfannenstiel-type incision. After ensuring the anesthetic was good, a Pfannenstiel skin incision was executed. There were some hot spots that delayed abdominal opening. An additional 10 mL of 0.25% Marcaine with epinephrine was injected as we continued with the incision. Request was made for general and Dr. Murrell informed the patient that she would be more comfortable with general anesthesia, but she declined because she was concerned about anesthetic effects on the fetus. The Pfannenstiel incision then was continued and the abdominal cavity uneventfully opened. The peritoneum was exquisitely sensitive and another 10 mL of 0.25% Marcaine was sprayed across the peritoneal cavity. A curvilinear hysterotomy incision was cut with a scalpel and gently extended with finger traction laterally. The nuisance wildlife control operator secured the head and brought it through the hysterotomy. However, the patient was excited and tense, making the abdominal incision difficult to negotiate, particularly since it was not made as generous as usual because of local anesthetic limitations. Kiwi rigid cup was placed on the flexion point and traction applied. One pop-off occurred. Forceps were then applied and the head elevated slightly. The delivery was finally finished with a Kiwi vacuum. The shoulders were uneventfully delivered. There was considerable cord entanglement and an obvious occult cord prolapse. A loop of umbilical cord was tightly lodged in between the head and cervix/pelvic sidewall. The cord was doubly clamped, transected, and the handed to Dr. Mendoza, the awaiting paper hanger. Cord blood and cord gas samples were taken. Mobilization of the uterus was very uncomfortable, as was massage to express the placenta. At this point, the patient did allow a general anesthesia via mask. Once anesthetized, the uterus was exteriorized and the hysterotomy was closed. The hysterotomy was closed in 2 layers: First, an interlocked stitch of 0 Vicryl, followed by an imbricating stitch of 0 Vicryl in a cardinal fashion. Bladder flap was closed with a running stitch of 3-0 Vicryl. The incisions were inspected and found to be hemostatically secure. The uterus was placed back in its normal anatomic position. The abdominal cavity was lavaged with warm normal saline. Operative sites and pelvic gutters were inspected to ensure there was no continued bleeding. The abdominal peritoneum was closed with a running stitch of 3-0 Vicryl. Fascia was closed with a running stitch of 0 Vicryl. The subcutaneous space was closed with interrupted sutures of 2-0 chromic. Skin was closed with a running subcuticular stitch of 4-0 Monocryl and dressed with Dermabond. Since the case was emergent and a count was not possible, a flat plate of the abdomen was taken that confirmed no retained sponges or instruments. The patient was aroused from anesthesia and sent to the recovery room in good condition. MEDICATIONS: Ancef 2 grams IV piggyback. TD: 11[facility]22/2017 21:38 [facility]
--- NOTE | 2017-11-25 09:21 | Discharge Plan ---
Discharge Plan Disposition: 01 Home, Self Care Condition: Good Diet: Regular Activity Restrictions: Activity as Tolerated Shower Restrictions: No Driving Restrictions: No No Smoking: If you smoke, Please STOP! Call for help. Follow-up with: Angel Luis Jensen MD [Provider Admit Priv/Credential] -
[2017-11-25 12:22] VITALS: BP 122/87
[2017-11-25] MEDS ORDERED: TETANUS/DIPHTHERIA/PERTUSSIS 0.5 ML SYRINGE IM ONE (13:00)
[2017-11-25] MEDS ORDERED: MEASLES,MUMPS & RUBELLA VACC 0.5 ML VIAL SUBQ ONE (13:00)
--- NOTE | 2017-11-25 13:45 | PROVIDER PROGRESS NOTE ---
Subjective - General Admit Date: 11/22/17 Procedure Date: 11/22/17 Post Op Days: 3 Procedure Performed: Primary LST Cesarian Section - Review of Systems Wound/Incisions: positive: Healing well (Dry & Intact) Drain Type: None General: positive: No symptoms HEENT: positive: No symptoms Pulmonary: positive: No symptoms Cardiovascular: positive: No symptoms Gastrointestinal: positive: No symptoms Genitourinary: positive: Pain (Controlled w Fentanyl & Tordol) Musculoskeletal: positive: No symptoms Skin: positive: No symptoms Psychiatric: positive: No symptoms (Discussed events around her section. In retrospect she wished that she was aware that she could have general anesthesia during the section as opposed to Epidural augmented by local. She states that she was worried about the baby. She is happy about the outcome. She intends to concentrate on what is positive.) Objective - Patient Data Vital Signs: Vital Signs x48h Temp Pulse Pulse Resp BP Pulse Ox 11/25/17 12:21 99.1 F 77 77 17 122/87 H 97 11/25/17 08:26 98.2 F 87 16 133/96 H 100 Intake & Output: Intake and Output Totals x24h 11/23/17 11/24/17 11/25/17 23:59 23:59 23:59 Intake Total 1300 Output Total 1525 Balance -225 - Lab Results Lab Results: 11/23/17 06:32 11/22/17 08:39 - Current Medications Current Medications: Current Medications Generic Name Dose Route Start Last Admin Trade Name Freq PRN Reason Stop Dose Admin Acetaminophen 1,000 mg 11/22/17 14:00 11/25/17 07:54 Tylenol PO 1,000 mg Q8H CHERRIE Administration Celecoxib 200 mg 11/23/17 15:00 11/25/17 08:54 Celebrex PO 200 mg BID CHERRIE Administration Docusate Sodium 100 mg 11/22/17 21:00 11/25/17 08:54 Colace 100mg Capsule PO 100 mg BID CHERRIE Administration Fentanyl 50 mcg 11/22/17 21:09 11/23/17 08:34 Fentanyl IVP 50 mcg Q1HR PRN Administration PAIN Lactated Ringer's 1,000 mls @ 100 mls/hr 11/22/17 14:00 11/22/17 23:58 Lr IV 100 mls/hr .Q10H CHERRIE Administration Labetalol HCl 100 mg 11/22/17 11:00 11/25/17 08:55 Trandate PO 100 mg BID CHERRIE Administration Oxycodone HCl 15 mg 11/23/17 14:08 11/25/17 10:03 Roxicodone PO 15 mg Q6H PRN Administration PAIN Pantoprazole Sodium 40 mg 11/23/17 09:00 11/24/17 07:45 Protonix PO 40 mg QDAC CHERRIE Administration Multivit/Folic Acid/Iron 1 tab 11/22/17 10:00 11/25/17 08:54 Trinatal Rx 1 PO 1 tab DAILYWM CHERRIE Administration Simethicone 80 mg 11/22/17 20:00 11/25/17 08:55 Mylicon PO 80 mg 0900,1300,1800,2100 CHERRIE Administration Sodium Chloride 10 ml 11/22/17 14:00 11/23/17 07:53 Normal Saline Flush 0.9% IVP Not Given Q8HR CHERRIE Physical Exam - Physical Exam General: positive: No acute distress HEENT: positive: Moist mucous membranes, Dentition normal Neck: positive: Supple w/out meningeal sx Cardiac: positive: Regular Rate Resipratory: positive: Clear to ausultation graciela Abdomen: positive: Normal Bowel sounds Female : positive: Enlarged uterus (17 weeks size firm nontender) Extremities: positive: Normal ROM Skin: positive: Warm and dry Neurologic: positive: Alert and Oriented X 3, Normal Speech PSYCH: positive: Anxious (Patient actually is quite calm with a direct manner. Voice is fluid smooth with normal emotional tone) Assess/Plan - Additional Planning My Orders: My Active Orders 11/25/17 09:19 Discharge [RC] .ONCE Assessment/Plan - Assessment/Plan Assessment: Postop day #2 Physiologically patient is recovering normally from her section. She has normal bladder and bowel function. There is no sign of infection. Psychologically she seems adjusted. There still remains risk for PTSD and depression given the dramatic events surrounding her section. Plan: Patient is encouraged to remain today for supportive care and continued observation.
[2017-11-25] MEDS: PANTOPRAZOLE 40 MG TABLET PO SCH (14:03)
--- NOTE | 2017-11-25 18:36 | DISCHARGE SUMMARY ---
Physician: Angel Luis Jensen MD DATE OF ADMISSION: 11/22/2017 DATE OF DISCHARGE: 11/25/2017 DIAGNOSES 1. 37-week 5-day , in labor. 2. Gestational hypertension. 3. Gestational diabetes. 4. Category 2 and category 3 heart tracing. 5. Meconium 6. Cord prolapse. 7. Tight nuchal cord x2. PROCEDURES: Emergent lower segment transverse section. DATE OF ADMISSION: 11/22/2017. DATE OF DISCHARGE: 11/25/2017. HISTORY OF PRESENT ILLNESS: Mrs. Naomi Freed is a 27-year-old 2, para 1 woman at 37 weeks 5 days gestation who was admitted in labor. She was originally cared for at the [facility] and transferred care at 34 weeks. She had been seen 4 times by our group. Her 3-hour GTT was late and demonstrated gestational diabetes. In the latter portion of her care, she began to become hypertensive and was placed on labetalol 200 b.i.d. for control. She was planned to be induced at 38 weeks. Baseline labs: Rh positive , rubella immune, RPR negative, hepatitis B negative, HIV negative, GC chlamydia negative , GBS negative. Reference Ean Joe's detailed H and P. HOSPITAL COURSE: The patient was admitted at 3 cm and began to contract with moderate intensity and initially the heart tracing remained stable. She was followed with q. 2-hour capillary blood glucoses. Patient entered the active phase at 11:30 on the . Cervix was noted to be 6 cm, 90% effaced and -1 station. There was heart tracing changes (recurrent deep variables) that made strip to be considered category 2. IUPC was placed. Chief Informatics Officer, Dr. Angel Luis Jensen, was alerted to standby. IUPC and scalp lead were placed. Epidural was already in place. There were decelerations down to the 70s and then 60s, some lasting nearly 2 minutes. Chief Informatics Officer came to evaluate the patient and persistent concerning deep decelerations prompted a call for emergent section. Ean Joe helped with preparation to move the patient and Dr. Jensen did an informed consent. PROCEDURE: The patient was brought to the operating room and placed on the OR table in a supine position with left lateral roll. Initially, there was some difficulty finding heart tones, but eventually they were found in the 130s. Due to the deterioration in heart strip, a local anesthetic, Marcaine, was begun for an immediate section. The anesthesiologist, Dr. Murrell redosed the epidural. Once local was dense enough to begin, incision was started. Eventually vacuum delivery of a living male weighing 2918g and scoring Apgars of 4/8/9 was accomplished. Cord pH was 7.14 with a base excess of -6. did well. Procedure was finished with deep sedation. The patient was aroused and taken to the recovery room in good condition. Postoperatively, the patient recovered well. Preoperative hemoglobin was 11.9 and postoperative was 10.5. We reviewed the perioperative and intraoperative events with the patient. All questions were answered. On postoperative days 2 and 3, the patient regained full diet and activity. went well. She psychologically seemed to recover well. On postoperative day 3, she was prepared for discharge. Midwifery service with Alanis Abbott reviewed techniques, recovery advice and arranged for followup on Friday. The patient will have postop wound check in [address] Jensen. Warning sign and callback instructions were reviewed, inclusive of foul discharge, fever and adverse changes in the surgical wound. DEERS form for [employer] was signed. DISCHARGE MEDICATIONS 1. Motrin 600 q. 6h. [id number], x1 week, then p.r.n. 2. Percocet 5/325 one to two tabs q. 4 hours p.r.n. breakthrough pain. 2. Labetalol 100 b.i.d. for 30 days. 3. Colace 250 mg b.i.d. for 30 days. TD: 11/25/2017 18:35 [facility]
--- NOTE | 2017-11-25 19:38 | Labor Flowsheet ---
Labor Flowsheet Datetime Report Generated by CPN: 11/25/2017 19:38 Datetime: 11/25/2017 08:24 VITAL SIGNS NBP Sys/Roma/Mean (mmHg): 133 : 96 : 103 Pulse: 87 LaborFlag: Labor Datetime: 11/25/2017 08:14 SpO2 (%): 100 Datetime: 11/22/2017 12:40 UTERINE ACTIVITY Monitor Mode: Internal Frequency (min): 3 Quality: Strong Duration (sec): 60 Pattern: Normal: <= 5 Contractions in 10 Minutes Resting Tone (Palpate): Relaxed Resting Tone IUP (mmHg): 0 Intensity IUP (mmHg): 50-70 IUPC Average Intensity: 60 IUPC Average Resting Tone: 0 ASSESSMENT A Monitor Mode: Internal Scalp Electrode FHR Baseline Rate : 135 Variability: Moderate 6-25 bpm Accelerations: 15X15 Decelerations: Variable (Annotations: Variables down to 70 bpm then returning to baseline.) Category: Category II Datetime: 11/22/2017 12:39 Patient Care Comments: To OR Datetime: 11/22/2017 12:30 Actions for Decelerations: Provider Notified (Annotations: Providers at bedside.) Datetime: 11/22/2017 12:25 Medication Comments: bicitra 30 mls Datetime: 11/22/2017 12:19 Communication Comments: Dr. Jensen obtaining pt consent for Datetime: 11/22/2017 12:14 Strip Reviewed by: Dr. Jensen COMMUNICATION Communication: RN at Bedside Datetime: 11/22/2017 12:11 MEDICATIONS Tocolytics: Terbutaline 0.25mg Subcutaneous Datetime: 11/22/2017 12:07 VAGINAL EXAM Dilatation (cm): 5.0 Effacement (%): 90 Station: -1 Exam by: Milagrosa Datetime: 11/22/2017 12:05 Patient Position/Activity: Right Tilt Datetime: 11/22/2017 11:30 Respirations: 18 Temperature (C): 37.2 Temperature Route: Oral Monitor Interventions for UA: IUPC Inserted MONTEVIDEO UNITS (Computed) Contractions in Ten Minutes: 5 [place] Units (mmHg): 200 Monitor Interventions for FHR: FSE Applied Anesthesia Level Check: T9 Datetime: 11/22/2017 11:24 I/O Interventions: Straight Cath (ml) @ 450 Datetime: 11/22/2017 11:20 PATIENT CARE Oxygen Amount (LPM): 10 Oxygen Method: Face Mask Datetime: 11/22/2017 11:12 Contraction Comments: FSE and IUPC placed by Milagrosa Datetime: 11/22/2017 11:09 Membrane Status: Light mec observed by Milagrosa Datetime: 11/22/2017 10:46 Comments: searching with ultrasound Datetime: 11/22/2017 09:50 Membranes Ruptured Date/Time: 11/22/2017 09:50 Membranes Rupture Method: Spontaneous Amniotic Fluid Color: Clear Amniotic Fluid Amount: Small Amniotic Fluid Odor: Normal Vaginal Bleeding: None Nitrazine: Positive Datetime: 11/22/2017 09:41 Epidural Procedure Other: Pump Started Datetime: 11/22/2017 09:23 Epidural Procedure: Completed Datetime: 11/22/2017 09:22 Anesthesia Comments: bolus given by anesthesia Datetime: 11/22/2017 09:15 ANESTHESIA Anesthesia Plans: Epidural Datetime: 11/22/2017 09:05 Anesthesia Interview: E Epidural Positioning: Sitting Datetime: 11/22/2017 07:40 PAIN Pain Scale: 6 Pain Presence: Intermittent Pain Type: Cramping Datetime: 11/22/2017 07:30 Stage of : Labor Datetime: 11/22/2017 06:41 Pain Relief Measures: Comfort Measures Pain Coping: Breathing Through Contractions Comfort Measures: Hot Shower/Tub/Spa
== END 2017-11-25 14:10 | disposition home or self-care (01) | DRG 766 ==
LOC: WFO 05:40 → FBP 05:41 → OBSVTOIN 06:00
PROVIDERS: ADMIT Registered Nurse; ATTEND Registered Nurse
PROC: 10D00Z1 Extraction of Products of Conception, Low, Open Approach (ICD-10-PCS; principal; 2017-11-22 12:30)
DX: O13.4 Gestational [pregnancy-induced] hypertension without significant proteinuria, complicating childbirth (principal); O24.429 Gestational diabetes mellitus in childbirth, unspecified control; O76 Abnormality in fetal heart rate and rhythm complicating labor and delivery; O77.0 Labor and delivery complicated by meconium in amniotic fluid; O69.0XX0 Labor and delivery complicated by prolapse of cord, not applicable or unspecified; O69.1XX0 Labor and delivery complicated by cord around neck, with compression, not applicable or unspecified; Z3A.37 37 weeks gestation of pregnancy; Z37.0 Single live birth
CPT/HCPCS: 36415; 36600; 74018; 80053; 82570; 82803; 84156; 85025; 86850; 86900; 86901

== ENCOUNTER 2020-07-08 14:05 | Emergency (ER) | payer OTHER ==
[2020-07-08 14:13] VITALS: BP 126/95
--- NOTE | 2020-07-08 14:54 | ED Physician Documentation ---
PD HPI UPPER EXT INJURY - Stated complaint Stated Complaint: L ARM PX - Chief complaint Chief Complaint: Trauma Ext - History obtained from History obtained from: Patient - Additonal information Additional information: Fell on outstretched left hand this morning. She is right-hand dominant. No other injuries except for some nonpainful scrapes on the right thompson. Ambulating okay. The only spot that hurts her is the left elbow. She is unable to range it. Review of Systems Constitutional: reports: Reviewed and negative Eyes: reports: Reviewed and negative Ears: reports: Reviewed and negative Nose: reports: Reviewed and negative PD PAST MEDICAL HISTORY - Present Medications Home Medications: Ambulatory Orders Medication Instructions Recorded Confirmed Labetalol [Trandate] 200 mg PO BID 11/22/17 11/22/17 Pantoprazole [Protonix] 40 mg PO DAILY 11/22/17 11/22/17 No122/Iron/Folic Acid 1 tab PO DAILY 11/22/17 11/22/17 [ Multi Tablet] Hydrocodone/Acetaminophen 1 - 2 tab PO Q6H PRN #15 tablet 07/08/20 [Hydrocodone-Acetamin 5-325 mg] - Allergies Allergies/Adverse Reactions: Allergies Allergy/AdvReac Type Severity Reaction Status Date / Time band aids AdvReac Rash Uncoded 07/08/20 14:11 - Social History Smoking Status: Never smoker PD ED PE NORMAL - Vitals Vital signs reviewed: Yes - General General: Alert and oriented X 3, No acute distress - Extremities Extremities: Other (Tender over the olecranon and radial head of the left elbow, cannot straighten it. Normal normal neurovascular function in the hand.) - Neuro Neuro: Alert and oriented X 3, Normal speech Results - Vitals Vitals: Vital Signs - 24 hr 07/08/20 14:11 Heart Rate 90 Respiratory 16 Rate Blood Pressure 126/95 H O2 Saturation 97 Oxygen O2 Source Room air - Rads (name of study) L elbow XR Radiology: EMP read contemporaneously (Somewhat displaced and slightly comminuted radial head fracture) PD MEDICAL DECISION MAKING - ED course ED course: 29-year-old woman with a radial head fracture. Isolated injury. Placed in a sling for comfort and advised on the need for orthopedic follow-up. Departure - Departure Disposition: 01 Home, Self Care Clinical Impression: Fracture of radial head, left, closed Qualifiers: Encounter type: initial encounter Fracture alignment: nondisplaced Qualified Code(s): S52.125A - Nondisplaced fracture of head of left radius, initial encounter for closed fracture Condition: Good Record reviewed to determine appropriate education?: Yes Instructions: ED Fx Radial Head Follow-Up: [facility] [Provider Group] Prescriptions: Hydrocodone/Acetaminophen [Hydrocodone-Acetamin 5-325 mg] 1 - 2 tab PO Q6H PRN #15 tablet PRN Reason: Pain Comments: As discussed, the treatment of her radial head fracture is generally just a sling with gentle range of motion exercises as you are able. Follow-up with the orthopedic clinic this week, call Friday for an appointment. Return for new or worsening symptoms. You can wear the sling as needed for comfort. Do not drink or drive while taking narcotic pain medication. Note that many narcotic pain relievers also contain Tylenol/acetaminophen. Please ensure that your total dose of acetaminophen from all sources does not exceed 3 g (3000 mg) per day. You may get constipated while on this medication. Take a stool softener such as Colace twice a day while you are on it. Also add an dqlr-noa-glbteef laxative such as senna or MiraLAX on any day that you do not have a bowel movement. If you received a narcotic pain medication or sedative while in the emergency department, do not drive for the next 24 hours. Discharge Date/Time: 07/08/20 15:08
--- NOTE | 2020-07-08 15:03 | XRAY Report ---
PROCEDURE: Elbow 3 View LT INDICATIONS: elbow inj TECHNIQUE: 3 views of the elbow were acquired. COMPARISON: None FINDINGS: Bones: There is a mildly displaced radial head fracture, with intra-articular involvement. No suspici ous bony lesions. Soft tissues: There is moderate elbow joint effusion. No suspicious soft tissue calcifications. IMPRESSION: Mildly displaced, intra-articular radial head fracture, with associated elbow joint effusion. Reviewed by: Gamaliel Yousif MD on 07/08/2020 2:01 PM RUSLAN Approved by: Gamaliel Yousif MD on 07/08/2020 2:01 PM RUSLAN Station ID: [id number]
== END 2020-07-08 15:08 | disposition home or self-care (01) ==
LOC: ED 14:05
DX: S52.122A Displaced fracture of head of left radius, initial encounter for closed fracture (principal); W01.0XXA Fall on same level from slipping, tripping and stumbling without subsequent striking against object, initial encounter
CPT/HCPCS: 99283

== ENCOUNTER 2020-07-20 07:45 | Outpatient (CLI) | payer OTHER ==
--- NOTE | 2020-07-20 09:11 | XRAY Report ---
PROCEDURE: Elbow 3 View LT INDICATIONS: LEFT RADIAL HEAD FRACTURE TECHNIQUE: 3 views of the elbow were acquired. COMPARISON: Elbow plain films 07/07/2020. FINDINGS: Bones: No previously unidentified fractures or dislocations. No suspicious bony lesions. Healing r adial head fracture without change in minimal malalignment across the fracture plane. Soft tissues: No elbow joint effusion. No suspicious soft tissue calcifications. IMPRESSION: Healing left elbow radial head fracture, minimal malalignment at the fracture plane as was previously the case. Reviewed by: Blaine Martel MD on 07/20/2020 9:09 AM PDT Approved by: Blaine Martel MD on 07/20/2020 9:09 AM PDT Station ID: [id number]
== END 2020-07-20 07:46 | disposition home or self-care (01) ==
LOC: DI.WCP 07:45
PROVIDERS: ATTEND Orthopaedic Surgery
DX: S52.122D Displaced fracture of head of left radius, subsequent encounter for closed fracture with routine healing (principal)

== ENCOUNTER 2020-08-21 11:58 | Outpatient (CLI) | payer OTHER ==
--- NOTE | 2020-08-21 12:04 | XRAY Report ---
PROCEDURE: Elbow 3 View LT INDICATIONS: LEFT RADIAL HEAD FRACTURE TECHNIQUE: 4 views of the elbow were acquired. COMPARISON: 07/20/2020, 07/08/2020 FINDINGS: Bones: There is a healing mildly displaced fracture of the radial head with involvement of the articu lar surface redemonstrated. Alignment appears similar to the prior studies. Fracture line remains vis ible. Soft tissues: There is a persistent elbow joint effusion. No suspicious soft tissue calcifications. IMPRESSION: 1. Healing mildly displaced fracture of the radial head without definite change in alignment. Reviewed by: Anthony Vasquez MD on 08/21/2020 12:03 PM PST Approved by: Anthony Vasquez MD on 08/21/2020 12:03 PM PST Station ID: [id number]
== END 2020-08-21 23:59 | disposition home or self-care (01) ==
LOC: DI.WCP 11:58
PROVIDERS: ATTEND Orthopaedic Surgery
DX: S52.122D Displaced fracture of head of left radius, subsequent encounter for closed fracture with routine healing (principal)